=== PATIENT | male | born 1990 | race Caucasian/White ===

== ENCOUNTER 2020-12-07 16:20 | Emergency (ER) | payer BC ==
--- NOTE | 2020-12-07 17:41 | EDM.PDOC ---
ED HPI GENERAL MEDICAL PROBLEM - General Chief Complaint: General Stated Complaint: VARICOSE VEINS LT LEG, SWELLING Time Seen by Provider: 12/07/20 17:02 - History of Present Illness INITIAL COMMENTS - FREE TEXT/NARRATIVE: HISTORY AND PHYSICAL: History of present illness: This is a 30-year-old gentleman with no significant past medical history who presents ER today secondary to concerns regarding increased welling to his vari cose veins to his left lower extremity. Patient reports that yesterday he had gone to the [facility] and was standing for quite some time putting most of his weight on his left leg. Patient reports that later that evening he noticed that the varicose veins to his left leg were much more engorged than usual and were slightly tender. Patient denies any recent fevers, shakes, chills, nausea, vomiting, diarrhea, chest pain, shortness of breath. Patient denies any asymmetric swelling to his lower extremities. Patient denies any pain to his feet or toes. Patient denies any hemoptysis or chest pain. Patient has any prior history of DVT or PE. Patient does not have a primary care physician here in [place] and reports that he does a lot of traveling and does not have a primary care physician. Patient reports that he has recently gained approximately 100 pounds secondary to his girlfriend cheating on him and losing his job to [employer]. Review of systems: As per history of present illness and below otherwise all systems reviewed and negative. Past medical history: As per history of present illness and as reviewed below otherwise noncontributory. Surgical history: As per history of present illness and as reviewed below otherwise noncontributory. Social history: No reported history of drug abuse. Family history: As per history of present illness and as reviewed below otherwise noncontributory. Physical exam: This patient was seen and evaluated during the 2019 SARS-CoV-2 novel coronavirus pandemic period. Community viral transmission is ongoing at time of this encounter and the emergency department is operating under pandemic response procedures. Constitutional: Patient is oriented to person, place, and time. Appears well- developed and well-nourished. No distress. HEENT: Moist mucous membranes Head: Normocephalic and atraumatic Eyes: Right eye exhibits no discharge. Left eye exhibits no discharge. No scleral icterus Neck: Normal range of motion. No tracheal deviation present. Cardiovascular: Normal rate and regular rhythm. Pulmonary: Effort normal, no respiratory distress. Abdominal: No distention Musculoskeletal: Normal range of motion Neurologic: Alert and oriented to person, place and time. Skin: [place], warm and dry. Psychiatric: Normal mood and affect. Behavior is normal. Judgment and thought content normal. Nursing note and vital signs have been reviewed Patient's ER physical exam is significant for engorged varicose veins to his left lower extremity from his mid thigh down to his popliteal fossa. Patient has good capillary refill. Patient skin is warm and dry. Patient has no palpable edema bilaterally. Assessment and plan: 30-year-old gentleman who presents ER today with concerns of blood clot versus varicose veins. Patient physical exam is consistent with engorged varicose veins. At this time, patient does not have any indication for further evaluation for DVT. Patient is active. Patient has no family history and no prior history of DVT or PE. Patient has no history or no known family history of bleeding dyscrasias. Patient will be discharged home with instructions to follow-up with a primary care physician for further evaluation. Reassessment at the time of disposition demonstrates that the patient is in no acute distress. The patient has remained stable throughout the entire ED visit and is without objective evidence for acute process requiring urgent intervention or hospitalization. The patient is stable for discharge, counseling is provided as documented above, discussed symptomatic treatment and specific conditions for return. I have spoken with the patient/caregiver and discussed todays findings, in addition to providing specific details for the plan of care. Questions are answe red and there is agreement with the plan. Definitive disposition and diagnosis as appropriate pending reevaluation and review of above. - Related Data Allergies Allergy/AdvReac Type Severity Reaction Status Date / Time No Known Allergies Allergy Verified 12/07/20 17:20 Home Meds: Home Meds . [No Known Home Meds] 12/07/20 [History] Past Medical History - Past Health History Medical/Surgical History: Denies Medical/Surgical History Musculoskeletal History: Reports: Arthritis - Infectious Disease History Infectious Disease History: Reports: Chicken Pox Social & Family History - Recreational Drug Use Recreational Drug Use: No ED ROS GENERAL - Review of Systems Review Of Systems: See Below ED EXAM, GENERAL - Physical Exam Exam: See Below Course - Vital Signs Last Recorded V/S: Last Vital Signs Temp 97.5 F 06/28/21 17:21 Pulse 95 12/07/20 17:21 Resp BP 161/78 H 12/07/20 17:21 Pulse Ox 98 12/07/20 17:21 Departure - Departure Time of Disposition: 17:39 Disposition: Home, Self-Care 01 Condition: Good Clinical Impression: Varicose veins of left lower extremity Qualifiers: Varicose vein complication: unspecified Qualified Code(s): I83.92 - Asymptomatic varicose veins of left lower extremity - Discharge Information Instructions: Varicose Veins, Surgical Procedures for Varicose Veins, Nonsurgical Procedures for Varicose Veins Referrals: PCP,None [Primary Care Provider] - Additional Instructions: Your seen and evaluated in the ER today secondary to concerns of your lower extremity. Your evaluation is consistent with having engorged varicose veins. These can be evaluated and treated as an outpatient by a surgeon using surgical procedures or sclerotherapy. Please make an appointment to see your family doctor for further management of your varicose veins. You can also use compression stockings to assist with the swelling to your veins. The following information is given to patients seen in the emergency department who are being discharged to home. This information is to outline your options for follow-up care. We provide all patients seen in our emergency department with a follow-up referral. The need for follow-up, as well as the timing and circumstances, are variable depending upon the specifics of your emergency department visit. If you don't have a primary care physician on staff, we will provide you with a referral. We always advise you to contact your personal physician following an emergency department visit to inform them of the circumstance of the visit and for follow-up with them and/or the need for any referrals to a consulting specialist. The emergency department will also refer you to a specialist when appropriate. This referral assures that you have the opportunity for follow-up care with a specialist. All of these measure are taken in an effort to provide you with optimal care, which includes your follow-up. Under all circumstances we always encourage you to contact your private physician who remains a resource for coordinating your care. When calling for follow-up care, please make the office aware that this follow-up is from your recent emergency room visit. If for any reason you are refused follow-up, please contact the [facility] Emergency Department at and asked to speak to the emergency department charge nurse. [facility] [address], [place] [address] [facility] [address] [place] [id number] Sepsis Event Note (ED) - Evaluation Sepsis Screening Result: No Definite Risk - Focused Exam Vital Signs: Vital Signs Temp Pulse BP Pulse Ox 12/07/20 17:21 97.5 F 95 161/78 H 98
== END 2020-12-07 17:47 | disposition home or self-care (01) ==
LOC: MW.ED 16:20
DX: I83.92 Asymptomatic varicose veins of left lower extremity (principal)
CPT/HCPCS: 99283